=== PATIENT | female | born 1940 | race Caucasian/White ===

== ENCOUNTER 2018-04-27 17:45 | Emergency (ER) | payer MEDICARE, OTHER ==
[~2018-04-27] VITALS: Ht 170.2 cm; Wt 86.0 kg
[2018-04-27 17:53] VITALS: BP 204/101; PULSE 102; TEMP 36.6; O2SAT 96; Ht 170.2 cm; Wt 86.0 kg
--- NOTE | 2018-04-27 21:00 | EMERGENCY ROOM VISIT NOTE ---
History Report prepared by Casey: Melida Campos Under the Supervision of: Dr. Tylor Aleman M.D. First contact with patient: 17:55 Chief Complaint: SKIN PROBLEM Stated Complaint: LEFT LEG HEMATOMA History of Present Illness The patient is a 77 year old female who presents to the Emergency Room with complaints of a skin lump on her left leg that appeared an hour prior to arrival. The patient reports that she previously had a bruise in the same spot and that the skin was not broken. The bump subsequently appeared. She denies any injury to the leg. She states that it does not hurt. She denies any chest pain, trouble breathing, and fevers. She notes that she has had her varicose veins stripped in the past. She also notes that she is not taking any blood pressure medication, but she takes aspirin daily. Source of History: patient Onset: 1 hour prior to arrival Position: leg (left) Quality: other (lump) Timing: other (sudden) Associated Symptoms: No fevers, No chest pain Note: Denies: trouble breathing Review of Systems See HPI for pertinent positives & negatives. A total of 4 systems reviewed and were otherwise negative. Past Medical & Surgical Medical Problems: (1) Anxiety (2) Hyperlipidemia (3) Hypertension Family History No pertinent family history Social History Marital Status: Allergies Coded Allergies: Morphine (Verified Allergy, Intermediate, Nausea, vomiting, 04/27/18) Uncoded Allergies: DEMEROL (Allergy, Intermediate, Nausea, vomiting, 04/27/18) Physical Exam Vital Signs Date Time Temp Pulse Resp B/P (MAP) Pulse Ox O2 Delivery O2 Flow Rate FiO2 04/27/18 17:53 36.6 102 20 204/101 96 Room Air Physical Exam Constitutional: Vital signs reviewed. Musculoskeletal: No peripheral edema. Left rick 2 cm hematoma with surrounding bruising, no sign of infection. Integumentary: No cyanosis. Neurological: The patient is awake and alert. No focal deficits. Psychiatric: Normal affect. Medical Decision & Procedures ED Course 1758: The patient was evaluated in room D3. A complete history and physical exam was performed. 1810: Upon reevaluation, the patient appeared to have improvement of her symptoms. I discussed tonight's findings with her. She verbalized agreement of the treatment plan. The patient was discharged home. Medical Decision This is a 77-year-old female presents with a bump on her left leg. She appears to have a bruise with a small hematoma to her left anterior rick. There is no surrounding cellulitis. I believe she likely bumped her leg without noticing and developed a bruise and some bleeding from a varicose vein. There is no bleeding currently. She was placed in a bulky dressing to avoid any injury to the hematoma. She is driving back to her home town today. She was advised to follow-up with her doctor. She was told that should she accidentally open the wound that she would need to hold direct pressure and go to her nearest hospital should she not be able to control the bleeding. She was discharged in good condition. Medication Reconcilliation Current Medication List: was personally reviewed by me Blood Pressure Screening Patient's blood pressure: Elevated blood pressure Blood pressure disposition: Referred to PCP Impression Primary Impression: Traumatic hematoma of left lower leg Scribe Attestation The scribe's documentation has been prepared under my direct and personally reviewed by me in its entirety. I confirm that the note above accurately reflects all work, treatment, procedures, and medical decision making performed by me. Departure Information Dispostion Home / Self-Care Forms HOME CARE DOCUMENTATION FORM, IMPORTANT VISIT INFORMATION, WORK / SCHOOL INSTRUCTIONS Patient Instructions My [facility] Additional Instructions You have been examined and treated today on an emergency basis only. This is not a substitute for, or an effort to provide, complete comprehensive medical care. It is impossible to recognize and treat all injuries or illnesses in a single emergency department visit. It is therefore important that you follow up closely with your physician. Call as soon as possible for an appointment. Return for worsening symptoms or if you develop bleeding, leg swelling, chest pain, shortness of breath or any other concerning symptoms. Keep a padded dressing over the wound to avoid accidentally opening it. If it starts bleeding hold direct pressure. Go to your nearest hospital if it does not stop bleeding. Problem Qualifiers Primary Impression: Traumatic hematoma of left lower leg Encounter type: initial encounter Qualified Codes: S80.12XA - Contusion of left lower leg, initial encounter
== END 2018-04-27 18:11 | disposition home or self-care (01) ==
LOC: C.EDB 17:49 → C.EDD 18:11
DX: S80.12XA Contusion of left lower leg, initial encounter (principal); X58.XXXA Exposure to other specified factors, initial encounter; I10 Essential (primary) hypertension; Z88.6 Allergy status to analgesic agent